=== PATIENT | male | born 1985 | race American Indian/Alaskan Native ===

== ENCOUNTER 2016-08-17 12:19 | Inpatient (IN) | payer MEDICAID ==
[2016-08-17 13:33] LABS: Hematocrit 39.5 % (35.5-45.6); Hemoglobin 12.8 gm/dl (11.8-15.2); Mean Corpuscular HGB Conc 32 % (32-34); Mean Corpuscular Hemoglobin 27 pg (28-32); Mean Corpuscular Volume 82 fl (84-94); Platelet Count 113 K/mm3 (140-440)
[2016-08-17] MEDS ORDERED: TYLENOL PO ONE (13:39)
[2016-08-17 13:47] LABS: Bacteria,Urine 1+ /HPF (Negative); Bilirubin,Urine NEG (Negative); Blood,Urine SM (Negative); Ketones,Urine NEG (Negative); Leukocyte Esterase,Urine SM (Negative); Mucus,Urine 1+ /HPF; Nitrite,Urine NEG (Negative); Protein,Urine <15 mg/dL mg/dL (Negative); Urobilinogen,Urine < 2.0 mg/dL (<2.0)
[2016-08-17 13:58] LABS: Alanine Aminotransferase 13 units/L (7-56); Albumin 3.6 g/dL (3.9-5); Albumin/Globulin Ratio 0.8 %; Alkaline Phosphatase 92 units/L (35-129); Anion Gap 14 mmol/L; BUN/Creatinine Ratio 8.88; Bilirubin,Total 0.5 mg/dL (0.1-1.2); Blood Urea Nitrogen 8 mg/dL (9-20); Calcium 8.4 mg/dL (8.4-10.2); Carbon Dioxide 24 mmol/L (22-30); Chloride 102.5 mmol/L (98-107); Glucose 97 mg/dL (75-100); Lipase 29 units/L (13-60); Potassium 3.6 mmol/L (3.6-5.0); Sodium 137 mmol/L (137-145); Total Protein 8.3 g/dL (6.3-8.2)
[2016-08-17 14:57] LABS: Basophils % (Manual) 0 % (0.0-1.8); Blastocytes % (Manual) 0 %
[2016-08-17 14:58] LABS: Anisocytosis 1+; Diff Status Complete; Platelet Estimate Appears Decreased
[2016-08-18] MEDS ORDERED: MORPHINE IV ONE (06:23)
[2016-08-18] MEDS ORDERED: NACL 0.9% 1000 ML 1,000 ML IV ONE (06:23)
--- NOTE | 2016-08-18 06:31 | Emergency Department Report ---
ED General Adult HPI - General Chief complaint: Abdominal Pain Stated complaint: CHEST PAIN/VOMITING/JAW SWELLING Time Seen by Provider: 08/18/16 06:15 Source: patient Mode of arrival: Ambulatory Limitations: No Limitations - History of Present Illness Initial comments: 31 year old male presents to the emergency department with multiple complaints. He reports over the past three weeks, he has been having tightness in his left upper chest radiating to his neck and jaw with exertion. He reports dizziness and diarrhea. There has been no fever. Patient has not passed out. Patient reports a history of HIV, but states he is not currently on any medication. He does not have a local physician. There are no other complaints. -: Gradual, week(s) (3) Location: face, neck, chest Radiation: non-radiation Severity scale (0 -10): 10 Quality: other (tightness) Consistency: intermittent Improves with: none Worsens with: other (exertion) Treatments Prior to Arrival: none - Related Data Home Medications Medication Instructions Recorded Confirmed Last Taken Emtricitabine/Tenofovir [Truvada 1 tab PO DAILY 01/21/16 01/21/16 Unknown 100 mg-150 mg Tablet] Norvir mg PO DAILY 01/21/16 Unknown Previous Rx's Medication Instructions Recorded Last Taken Type Sulfamethoxazole/Trimethoprim 1 each PO BID #28 tablet 11/25/15 Unknown Rx [Bactrim DS TAB] Doxycycline [Vibramycin CAP] 100 mg PO Q12HR #19 capsule 01/22/16 Unknown Rx Ibuprofen [Motrin] 600 mg PO Q8H PRN #30 tablet 01/22/16 Unknown Rx oxyCODONE [Roxicodone TAB] 5 mg PO Q6HR PRN #15 tablet 01/22/16 Unknown Rx Cephalexin [Keflex] 500 mg PO Q8HR #21 cap 05/15/16 Unknown Rx Allergies Allergy/AdvReac Type Severity Reaction Status Date / Time shellfish derived Allergy Swelling Verified 08/17/16 12:58 ED Review of Systems ROS: Stated complaint: CHEST PAIN/VOMITING/JAW SWELLING Other details as noted in HPI Comment: All other systems reviewed and negative Cardiovascular: chest pain, dyspnea on exertion, syncope (lightheadedness, no loss of consciousness) Gastrointestinal: diarrhea ED Past Medical Hx - Past Medical History Previous Medical History?: Yes Hx HIV: Yes Additional medical history: Anal Fistula - Surgical History Past Surgical History?: Yes Additional Surgical History: Fistula Surgery - Family History Family history: no significant - Social History Smoking Status: Current Every Day Smoker Substance Use Type: Marijuana - Medications Home Medications: Home Medications Medication Instructions Recorded Confirmed Last Taken Type Sulfamethoxazole/Trimethoprim 1 each PO BID #28 tablet 11/25/15 01/21/16 Unknown Rx [Bactrim DS TAB] Emtricitabine/Tenofovir [Truvada 1 tab PO DAILY 01/21/16 01/21/16 Unknown History 100 mg-150 mg Tablet] Norvir mg PO DAILY 01/21/16 Unknown History Doxycycline [Vibramycin CAP] 100 mg PO Q12HR #19 capsule 01/22/16 Unknown Rx Ibuprofen [Motrin] 600 mg PO Q8H PRN #30 tablet 01/22/16 Unknown Rx oxyCODONE [Roxicodone TAB] 5 mg PO Q6HR PRN #15 tablet 01/22/16 Unknown Rx Cephalexin [Keflex] 500 mg PO Q8HR #21 cap 05/15/16 Unknown Rx ED Physical Exam - General Limitations: No Limitations General appearance: alert, in no apparent distress - Head Head exam: Present: atraumatic, normocephalic - Eye Eye exam: Present: normal appearance, PERRL, EOMI - ENT ENT exam: Present: normal orophraynx, mucous membranes moist, other (palpable mass noted to the left mandible. Area is tender to touch. No fluctuance noted. No overlying erythema.) - Neck Neck exam: Present: normal inspection, full ROM. Absent: tenderness - Respiratory Respiratory exam: Present: normal lung sounds bilaterally. Absent: respiratory distress - Cardiovascular Cardiovascular Exam: Present: regular rate, normal rhythm, normal heart sounds - GI/Abdominal GI/Abdominal exam: Present: soft, normal bowel sounds. Absent: distended, tenderness - Extremities Exam Extremities exam: Present: normal inspection, full ROM. Absent: tenderness - Back Exam Back exam: Present: normal inspection, full ROM. Absent: tenderness - Neurological Exam Neurological exam: Present: alert, oriented X3. Absent: motor sensory deficit - Skin Skin exam: Present: warm, dry, intact ED Course Vital Signs 08/17/16 08/17/16 08/18/16 12:50 13:43 01:39 Temperature 98.7 F Pulse Rate 93 H 101 H Respiratory 17 18 20 Rate Blood Pressure 115/71 125/77 Blood Pressure [Left] O2 Sat by Pulse 100 98 Oximetry 08/18/16 04:56 Temperature Pulse Rate 70 Respiratory 16 Rate Blood Pressure Blood Pressure 96/57 [Left] O2 Sat by Pulse 99 Oximetry ED Medical Decision Making - Lab Data Result diagrams: 08/17/16 13:21 08/17/16 13:21 - EKG Data -: EKG Interpreted by Me EKG shows normal: sinus rhythm, axis, intervals, QRS complexes, ST-T waves Rate: normal - EKG Data When compared to previous EKG there are: no significant change Interpretation: normal EKG, unchanged when compared t (10/23/2015) - Radiology Data Radiology results: report reviewed, image reviewed interpreted by me: Chest x-ray shows no acute cardiopulmonary abnormality. CT of the facial bones with IV contrast revealed left facial cellulitis with no evidence of abscess. - Medical Decision Making Lab and imaging results reviewed and discussed with the patient. 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 Patient was seen by me for similar complaints approximately 2 months ago. Since the patient is not currently on any medication, IV Unasyn has been ordered. Patient is to be admitted by the hospitalist. - Differential Diagnosis facial abscess, atypical chest pain, HIV Critical care attestation.: If time is entered above; I have spent that time in minutes in the direct care of this critically ill patient, excluding procedure time. ED Disposition Clinical Impression: Cellulitis and abscess of face, HIV disease Disposition: OP ADMITTED IP TO THIS HOSP Is pt being admited?: Yes Condition: Stable Referrals: PRIMARY CARE, [Primary Care Provider] - 3-5 Days Time of Disposition: 08:59
--- NOTE | 2016-08-18 07:23 | XRay Report ---
AP CHEST: HISTORY: chest pain There is very poor inspiration. AP view of the chest demonstrates a normal mediastinal and cardiac contour with clear lungs and normal bony and soft tissue structures. IMPRESSION: Grossly negative expiratory AP chest. No significant change since 01/21/16.
[2016-08-18] MEDS ORDERED: NACL ONE (07:26)
--- NOTE | 2016-08-18 08:37 | Cat Scan Report ---
CT FACIAL BONES WITHOUT CONTRAST: HISTORY: Left facial abscess, swelling, pain. TECHNIQUE: Helical CT images with sagittal and coronal CT reformations. FINDINGS: There is nonspecific soft tissue edema and mild enhancement in the left facial soft tissues consistent with cellulitis. There is no defined fluid collection consistent with abscess. No evidence for adenopathy. There are scattered reactive lymph nodes in both jugular chains. The structures of the upper aerodigestive tract are within normal limits. The sinuses are clear. The imaged brain is unremarkable. The facial bones are intact. No fracture, bone lesion or bony destruction. IMPRESSION: Left facial cellulitis. No abscess is identified.
[2016-08-18] MEDS ORDERED: UNASYN/NS 3 GM/100 ML 3 GM/100 ML BAG IV ONE (08:51)
[2016-08-18] MEDS ORDERED: DILAUDID IV ONE (08:54)
--- NOTE | 2016-08-18 09:50 | Admit Criteria Form ---
Admission Criteria Documentation: CELLULITIS Clinical Indications for Admission to Inpatient Care (Place 'X' for any and all applicable criteria): Admission is indicated for ANY ONE of the following(1)(2)(3)(4)(5): [ ]I. Limb-threatening infection [X]II. High-risk comorbid condition as indicated by ANY ONE of the following: [ ]a) Uncontrolled diabetes (eg, HbA1c greater than 10% (0.1)) [ ]b) Cirrhosis [ ]c) Neutropenia [ ]d) Asplenia [X]e) Immunosuppression [ ]f) Symptomatic heart failure [ ]III. Failure of outpatient therapy as indicated by ALL of the following: [ ]a) Progression or no improvement after adequate trial (minimum of 48 hours, with longer period for stable lower extremity infection) [ ]b) Adequate antibiotic regimen as indicated by use of ANY ONE of the following: [ ]i) First-generation cephalosporin (e.g., cephalexin) [ ]ii) Antistaphylococcal penicillin (e.g., dicloxacillin) [ ]iii) Penicillin-allergic patient regimen (clindamycin, extended-spectrum fluoroquinolone, or doxycycline) [ ]iv) Resistant organism (eg, methicillin-resistant Staphylococcus aureus) regimen (6) [ ]c) Outpatient intravenous therapy regimen is not appropriate due to ANY ONE of the following. (7)(8)(9)(10): [ ]i) It was tried and was not successful (eg, progression of infection). [ ]ii) It is not available or cannot be arranged in a clinically appropriate time frame (e.g., the next day). [ ]iii) Clinical presentation (eg, acuity of infection, rapidity of progression, confirmed or suspected bacteremia) is judged to require ALL of the following: [ ]1) Immediate initiation of intravenous therapy ( eg, cannot wait for next day) [ ]2) Intensity of patient monitoring and observation (eg, vital sign measurement, checks for infection progression) that cannot be provided at other than inpatient level of care [ ]IV. Mental status changes [ ]V. Bacteremia [ ]. Hemodynamic instability [ ]VII. Suspected necrotizing soft tissue infection (e.g., gas in tissue)(11)( 12) [ ]VIII. Orbital infection (13)(14) [ ]IX. Associated surgical procedure (e.g., abscess drainage, debridement) not amenable to outpatient, emergency department, or observation care [ ]X. Cutaneous gangrene [ ]XI. High fever (temperature greater than 39.5 degrees C (103.1 degrees F) (oral)) not responsive to outpatient, emergency department, or observation care therapy [X]XIII. Inpatient admission required rather than observation care (Also use Cellulitis: Observation Care as appropriate) because of ANY ONE of the following : [ ]a) Periorbital or perineal infection that is severe or worsening [ ]b) Severe pain requiring acute inpatient management [ ]c) IV fluid to replace significant ongoing (e.g., for over 24 hours) losses (greater than 3L/m2 per day) [ ]d) Compartment syndrome monitoring (17) [ ]e) Strict or protective (eg, laminar flow) isolation [ ]f) Urgent debridement or skin grafting [ ]g) Bone or joint debridement [ ]h) Immediate inpatient surgery [X]i) Other condition, treatment or monitoring requiring inpatient admission Extended stay beyond goal length of stay may be needed for (1)(18): [ ]a) Necrotizing soft tissue infection or fasciitis [ ]b) Gram-negative infection [ ]c) Methicillin-resistant Staphylococcal aureus (MRSA) infection [ ]d) Peripheral venous insufficiency with cellulitis [ ]e) Extensive edema [ ]f) Sepsis or continued Hemodynamic instability [ ]g) Continued high fever or mental status change [ ]h) Bacteremia [ ]i) Active serious comorbid conditions ( eg, heart failure, renal insufficiency) The original [facility] content created by [facility] has been revised. The portions of the content which have been revised are identified through the use of italic text or in bold, and [facility] has neither reviewed nor approved the modified material. All other unmodified content is copyright [facility] [employer] [facility] Please see references footnoted in the original [facility] [employer] edition 2016 Admission Criteria Met: Yes
[2016-08-18] MEDS: ASPIRIN PO SCH (10:52)
[2016-08-18] MEDS: NITRO-BID 2% TP SCH (10:52)
[2016-08-18 11:03] LABS: INR 1.06 (0.87-1.13)
[2016-08-18 11:04] LABS: Partial Thromboplastin Time 30.9 Sec. (24.2-36.6)
[2016-08-18 11:12] LABS: Creatine Kinase 103 units/L (55-170)
[2016-08-18 11:14] LABS: Creatine Kinase MB < 1.0 ng/mL (0.0-4.0)
[2016-08-18] MEDS: VANCOMYCIN/NS 1 GM/250 ML 1 GM/250 ML BAG IV SCH (11:52)
[2016-08-18] MEDS: ZOSYN/NS 4.5GM/100ML 4.5 GM/100 ML VIAL IV SCH ×2 (14:28→22:43)
[2016-08-18] MEDS: MORPHINE IV PRN ×2 (14:29→22:42)
--- NOTE | 2016-08-18 19:32 | History and Physical Report ---
History of Present Illness Date of examination: 08/18/16 Date of admission: 08/18/16 09:00 Chief complaint: Chest pain - one day duration History of present illness: Patient is a 31-year-old gentleman was a history of HIV and cellulitis of the left cheek for which she's been having IV antibiotics, also Tylenol been discharged from my [facility] yesterday the [facility] complaining of right chest when left-sided, over 10 in severity. Nonexertional. Also with shortness of breath and diaphoresis. Admitted vomiting. Vomited 1-2 times a day. Also been treated for cellulitis of the left jaw with IV antibiotics. Found out about a year ago was positive HIV and has not had any treatment so far. Patient stated that his been having difficulties with the residents and therefore has not felt well enough to get himself and medical care. Past History Past Medical History: other (his HIV AIDS, cellulitis left jaw.) Past Surgical History: No surgical history Social history: smoking, alcohol abuse. denies: IV drug use Family history: CAD Medications and Allergies Allergies Allergy/AdvReac Type Severity Reaction Status Date / Time shellfish derived Allergy Swelling Verified 08/17/16 12:58 Home Medications Medication Instructions Recorded Confirmed Last Taken Type No Known Home Medications [No 08/18/16 08/18/16 Unknown History Reported Home Medications] Active Meds: Active Medications Aspirin (Aspirin) 325 mg PO QDAY [facility] Last Admin: 08/18/16 10:52 Dose: 325 mg Enoxaparin Sodium (Lovenox) 40 mg SUB-Q QDAY@2200 PRADEEP Vancomycin HCl (Vancomycin/Ns 1 Gm/250 Ml) 1 gm in 250 mls @ 166.667 mls/hr IV Q24HR [facility] Last Admin: 08/18/16 11:52 Dose: 166.667 mls/hr Piperacillin Sod/Tazobactam Sod (Zosyn/Ns 4.5gm/100ml) 4.5 gm in 100 mls @ 200 mls/hr IV Q8HR PRADEEP PRN Reason: Protocol Last Admin: 08/18/16 14:28 Dose: 200 mls/hr Morphine Sulfate (Morphine) 2 mg IV Q4H PRN PRN Reason: Pain, Moderate (4-6) Last Admin: 08/18/16 14:29 Dose: 2 mg Nitroglycerin (Nitro-Bid 2%) 1 inch TP DAILY PRADEEP PRN Reason: Protocol Last Admin: 08/18/16 10:52 Dose: 1 inch Review of systems Constitutional: Well Nouridhed and Well developed. Head: NC/ AT Eyes: Denies any visual impairments. No discharge from the eyes Nose: Denies any rhinorrhea or epistaxis Throats: Denies any post nasal drainage. Ears: Denies any hearing deficits Cardiovascular system: Has chest pain, shortness of breath, diaphoresis. Denies orthopnea, paroxysmal nocturnal dyspnea, or palpitation. Respiratory system: Denies any cough, difficulty breathing, wheezing, pleuritic chest pain, Gastrointestinal system: Denies any abdominal pain, nausea vomiting, hematemesis or melena. Neurological system: Denies any headache, slurred speech, facial droop, lateralizing weakness Genitalia system: Denies any dysuria, urinary frequency or urgency, urethral discharge Skin: Cellulitis left cheek. Hematological: Denies any cervical tenderness hemorrhages or petechia. Immunological: Denies any multiple septic spots, Lymphatic: Denies any generalized lymphadenopathy. Endocrine: Denies any polyuria, polydipsia, polyphagia. No heat or cold intolerance. Musculoskeletal system: No joint pain or swelling. Psych: No visual, tactile, auditory or hallucination Exam - Constitutional Vitals: Temp Pulse Resp BP Pulse Ox 102.9 F H 116 H 16 100/54 98 08/18/16 17:10 08/18/16 17:10 08/18/16 17:10 08/18/16 17:10 08/18/16 11:17 General appearance: Present: no acute distress, well-nourished - EENT Eyes: Present: PERRL ENT: hearing intact, clear oral mucosa - Neck Neck: Present: supple, normal ROM - Respiratory Respiratory effort: normal Respiratory: bilateral: CTA - Cardiovascular Heart Sounds: Present: S1 & S2. Absent: rub, click - Extremities Extremities: pulses symmetrical, No edema Peripheral Pulses: within normal limits - Abdominal General gastrointestinal: Present: soft, non-tender, non-distended - Integumentary Integumentary: Present: clear, warm, dry - Musculoskeletal Musculoskeletal: gait normal, strength equal bilaterally - Psychiatric Psychiatric: appropriate mood/affect, intact judgment & insight - Neurologic Neurologic: CNII-XII intact, moves all extremities Results - Labs CBC & Chem 7: 08/17/16 13:21 08/17/16 13:21 Assessment and Plan 1. Chest pain: Cardiac enzymes are normal. We'll continue to obtain the rest of cardiac enzymes. Patient commenced on oxygen nitroglycerin aspirin and morphine. Stress thallium in the morning. Carotids consult obtained. 2. Cellulitis left jaw. Patient's continuing IV vancomycin and Zosyn. ID consult be obtained. 3. HIV AIDS, we will obtain CD4 count and HIV screening. ID consult be obtained. 4. Leukopenia: Likely secondary to HIV/AIDS 5. UTI: Urinalysis shows a positive leukocyte esterase and urine nitrites. There was otherwise in the urine. Patient on Zosyn. Will obtain urine culture. 6. DVT prophylaxis with Lovenox and GI with Pepcid Spent 35 minutes during this admission process.
[2016-08-18] MEDS: LOVENOX SUB-Q SCH (22:42)
[2016-08-19] MEDS: MORPHINE IV PRN ×4 (04:01→22:13)
--- NOTE | 2016-08-19 09:35 | Progress Note ---
Assessment and Plan Assessment and plan: 1. Chest pain. Cardiac enzymes are normal. Continue on oxygen nitroglycerin aspirin and morphine. Stress thallium this morning. Cardiology consult obtained. 2. Cellulitis left jaw. Patient's continuing IV vancomycin and Zosyn. ID consult be obtained. 3. HIV AIDS, we will obtain CD4 count and HIV screening. ID consult pending 4. Leukopenia: Likely secondary to HIV/AIDS 5. UTI. Continue IV antibiotics and follow blood and urine cultures. 6. Sepsis. Patient presents criteria with leukopenia, tachycardia and cellulitis/UTI. Start sepsis pathway and trend acid levels. 7. DVT prophylaxis with Lovenox and GI with Pepcid History Interval history: No new issues overnight. Patient denies chest pain. Hospitalist Physical - Constitutional Vitals: Temp Pulse Resp BP Pulse Ox 98.3 F 76 16 109/72 98 08/19/16 08:00 08/19/16 08:00 08/19/16 08:00 08/19/16 08:00 08/19/16 08:00 General appearance: Present: no acute distress, well-nourished - EENT Eyes: Present: PERRL, EOM intact ENT: hearing intact, clear oral mucosa, dentition normal - Neck Neck: Present: supple, normal ROM - Respiratory Respiratory effort: normal Respiratory: bilateral: CTA - Cardiovascular Rhythm: regular Heart Sounds: Present: S1 & S2. Absent: gallop, rub - Extremities Extremities: no ischemia, No edema, Full ROM - Abdominal General gastrointestinal: soft, non-tender, non-distended, normal bowel sounds - Integumentary Integumentary: Present: clear, warm, dry - Neurologic Neurologic: CNII-XII intact, moves all extremities Results - Labs CBC & Chem 7: 08/17/16 13:21 08/17/16 13:21 Labs: Laboratory Last Values WBC 2.0 K/mm3 (4.5-11.0) L 08/17/16 13:21 RBC 4.80 M/mm3 (3.65-5.03) 08/17/16 13:21 Hgb 12.8 gm/dl (11.8-15.2) 08/17/16 13:21 Hct 39.5 % (35.5-45.6) 08/17/16 13:21 MCV 82 fl (84-94) L 08/17/16 13:21 MCH 27 pg (28-32) L 08/17/16 13:21 MCHC 32 % (32-34) 08/17/16 13:21 RDW 15.0 % (13.2-15.2) 08/17/16 13:21 Plt Count 113 K/mm3 (140-440) L 08/17/16 13:21 Crowley % (Auto) Tech Ed/Woodshop Teacher 08/17/16 13:21 Add Manual Diff Complete 08/17/16 13:21 Total Counted 50 08/17/16 13:21 Seg Neuts % (Manual) 54.0 % (40.0-70.0) 08/17/16 13:21 Band Neutrophils % 4.0 % 08/17/16 13:21 Lymphocytes % (Manual) 24.0 % (13.4-35.0) 08/17/16 13:21 Reactive Lymphs % (Man) 0 % 08/17/16 13:21 Monocytes % (Manual) 10.0 % (0.0-7.3) H 08/17/16 13:21 Eosinophils % (Manual) 2.0 % (0.0-4.3) 08/17/16 13:21 Basophils % (Manual) 0 % (0.0-1.8) 08/17/16 13:21 Metamyelocytes % 6.0 % 08/17/16 13:21 Myelocytes % 0 % 08/17/16 13:21 Promyelocytes % 0 % 08/17/16 13:21 Blast Cells % 0 % 08/17/16 13:21 Nucleated RBC % Not Reportable 08/17/16 13:21 Seg Neutrophils # Man 1.1 K/mm3 (1.8-7.7) L 08/17/16 13:21 Band Neutrophils # 0.1 K/mm3 08/17/16 13:21 Lymphocytes # (Manual) 0.5 K/mm3 (1.2-5.4) L 08/17/16 13:21 Abs React Lymphs (Man) 0.0 K/mm3 08/17/16 13:21 Monocytes # (Manual) 0.2 K/mm3 (0.0-0.8) 08/17/16 13:21 Eosinophils # (Manual) 0.0 K/mm3 (0.0-0.4) 08/17/16 13:21 Basophils # (Manual) 0.0 K/mm3 (0.0-0.1) 08/17/16 13:21 Metamyelocytes # 0.1 K/mm3 08/17/16 13:21 Myelocytes # 0.0 K/mm3 08/17/16 13:21 Promyelocytes # 0.0 K/mm3 08/17/16 13:21 Blast Cells # 0.0 K/mm3 08/17/16 13:21 WBC Morphology Not Reportable 08/17/16 13:21 Hypersegmented Neuts Not Reportable 08/17/16 13:21 Hyposegmented Neuts Not Reportable 08/17/16 13:21 Hypogranular Neuts Not Reportable 08/17/16 13:21 Smudge Cells Not Reportable 08/17/16 13:21 Toxic Granulation Not Reportable 08/17/16 13:21 Toxic Vacuolation Not Reportable 08/17/16 13:21 Dohle Bodies Not Reportable 08/17/16 13:21 Pelger-Huet Anomaly Not Reportable 08/17/16 13:21 Monika Rods Not Reportable 08/17/16 13:21 Platelet Estimate Appears decreased 08/17/16 13:21 Clumped Platelets Not Reportable 08/17/16 13:21 Plt Clumps, EDTA Not Reportable 08/17/16 13:21 Large Platelets Not Reportable 08/17/16 13:21 Giant Platelets Not Reportable 08/17/16 13:21 Platelet Satelliting Not Reportable 08/17/16 13:21 Plt Morphology Comment Not Reportable 08/17/16 13:21 RBC Morphology Not Reportable 08/17/16 13:21 Dimorphic RBCs Not Reportable 08/17/16 13:21 Polychromasia Not Reportable 08/17/16 13:21 Hypochromasia Not Reportable 08/17/16 13:21 Poikilocytosis Not Reportable 08/17/16 13:21 Anisocytosis 1+ 08/17/16 13:21 Microcytosis Not Reportable 08/17/16 13:21 Macrocytosis Not Reportable 08/17/16 13:21 Spherocytes Not Reportable 08/17/16 13:21 Pappenheimer Bodies Not Reportable 08/17/16 13:21 Sickle Cells Not Reportable 08/17/16 13:21 Target Cells Not Reportable 08/17/16 13:21 Tear Drop Cells Not Reportable 08/17/16 13:21 Ovalocytes Not Reportable 08/17/16 13:21 Helmet Cells Not Reportable 08/17/16 13:21 [place] Bodies Not Reportable 08/17/16 13:21 [place] Rings Not Reportable 08/17/16 13:21 [place] Cells Not Reportable 08/17/16 13:21 Bite Cells Not Reportable 08/17/16 13:21 Crenated Cell Not Reportable 08/17/16 13:21 Elliptocytes Not Reportable 08/17/16 13:21 Acanthocytes (Spur) Not Reportable 08/17/16 13:21 Rouleaux Not Reportable 08/17/16 13:21 Hemoglobin C Crystals Not Reportable 08/17/16 13:21 Schistocytes Not Reportable 08/17/16 13:21 Malaria parasites Not Reportable 08/17/16 13:21 Alvaro Bodies Not Reportable 08/17/16 13:21 Hem Pathologist Commnt No 08/17/16 13:21 PT 13.7 Sec. (12.2-14.9) 08/18/16 10:29 INR 1.06 (0.87-1.13) 08/18/16 10:29 APTT 30.9 Sec. (24.2-36.6) 08/18/16 10:29 Sodium 137 mmol/L (137-145) 08/17/16 13:21 Potassium 3.6 mmol/L (3.6-5.0) 08/17/16 13:21 Chloride 102.5 mmol/L (98-107) 08/17/16 13:21 Carbon Dioxide 24 mmol/L (22-30) 08/17/16 13:21 Anion Gap 14 mmol/L 08/17/16 13:21 BUN 8 mg/dL (9-20) L 08/17/16 13:21 Creatinine 0.9 mg/dL (0.8-1.5) 08/17/16 13:21 Estimated GFR > 60 ml/min 08/17/16 13:21 BUN/Creatinine Ratio 8.88 % 08/17/16 13:21 Glucose 97 mg/dL (75-100) 08/17/16 13:21 Calcium 8.4 mg/dL (8.4-10.2) 08/17/16 13:21 Total Bilirubin 0.5 mg/dL (0.1-1.2) 08/17/16 13:21 AST 17 units/L (5-40) 08/17/16 13:21 ALT 13 units/L (7-56) 08/17/16 13:21 Alkaline Phosphatase 92 units/L (35-129) 08/17/16 13:21 Total Creatine Kinase 103 units/L (55-170) 08/18/16 10:29 CK-MB (CK-2) < 1.0 ng/mL (0.0-4.0) 08/18/16 10:29 CK-MB (CK-2) Rel Index 0.9 (0-4) 08/18/16 10:29 Troponin T < 0.010 ng/mL (0.00-0.029) 08/18/16 10:29 Total Protein 8.3 g/dL (6.3-8.2) H 08/17/16 13:21 Albumin 3.6 g/dL (3.9-5) L 08/17/16 13:21 Albumin/Globulin Ratio 0.8 % 08/17/16 13:21 Lipase 29 units/L (13-60) 08/17/16 13:21 Urine Color Yellow (Yellow) 08/17/16 Unknown Urine Turbidity Clear (Clear) 08/17/16 Unknown Urine pH 5.0 (5.0-7.0) 08/17/16 Unknown Ur Specific [place] 1.023 (1.003-1.030) 08/17/16 Unknown Urine Protein <15 mg/dl mg/dL (Negative) 08/17/16 Unknown Urine Glucose (UA) Neg mg/dL (Negative) 08/17/16 Unknown Urine Ketones Neg mg/dL (Negative) 08/17/16 Unknown Urine Blood Sm (Negative) 08/17/16 Unknown Urine Nitrite Neg (Negative) 08/17/16 Unknown Urine Bilirubin Neg (Negative) 08/17/16 Unknown Urine Urobilinogen < 2.0 mg/dL (<2.0) 08/17/16 Unknown Ur Leukocyte Esterase Sm (Negative) 08/17/16 Unknown Urine WBC (Auto) 15.0 /HPF (0.0-6.0) H 08/17/16 Unknown Urine RBC (Auto) 4.0 /HPF (0.0-6.0) 08/17/16 Unknown U Epithel Cells (Auto) 1.0 /HPF (0-13.0) 08/17/16 Unknown Urine Bacteria (Auto) 1+ /HPF (Negative) 08/17/16 Unknown Urine Mucus 1+ /HPF 08/17/16 Unknown
[2016-08-19] MEDS: ASPIRIN PO SCH (09:44)
[2016-08-19] MEDS: ZOSYN/NS 4.5GM/100ML 4.5 GM/100 ML VIAL IV SCH ×3 (09:48→22:11)
[2016-08-19] MEDS: NITRO-BID 2% TP SCH (09:48)
[2016-08-19] MEDS: VANCOMYCIN/NS 1 GM/250 ML 1 GM/250 ML BAG IV SCH ×3 (11:27→22:12)
--- NOTE | 2016-08-19 19:54 | Consultation ---
History of Present Illness - Reason for Consult Consult date: 08/19/16 FACIAL CELLULITIS Requesting physician: JAC ROSE - History of Present Illness Patient is a 31-year-old gentleman was a history of HIV and cellulitis of the left cheek for which she's been having IV antibiotics, also Tylenol been discharged from my [facility] yesterday the [facility] complaining of right chest when left-sided, over 10 in severity. Nonexertional. Also with shortness of breath and diaphoresis. Admitted vomiting. Vomited 1-2 times a day. Also been treated for cellulitis of the left jaw with IV antibiotics. Found out about a year ago was positive HIV and has not had any treatment so far. Patient stated that his been having difficulties with the residents and therefore has not felt well enough to get himself and medical care. Past History Past Medical History: other (his HIV AIDS, cellulitis left jaw.) PHYSICAL EXAM Left facial cellulitis with mild swelling. LABS - Reviewed. See lab section. ASSESSMENT 1. LEFT FACIAL CELLULITIS 2. HIV/AIDS 3. LEUKOPENIA RECOMMENDATION 1. Switch to oral levaquin and clindamycin in am 2. cd4 count, hiv rna qty 3. cbc / bmp in am Past History Past Medical History: other (his HIV AIDS, cellulitis left jaw.) Past Surgical History: No surgical history Social history: smoking, alcohol abuse. denies: IV drug use Family history: CAD Medications and Allergies Allergies Allergy/AdvReac Type Severity Reaction Status Date / Time shellfish derived Allergy Swelling Verified 08/17/16 12:58 Home Medications Medication Instructions Recorded Confirmed Last Taken Type No Known Home Medications [No 08/18/16 08/18/16 Unknown History Reported Home Medications] Active Meds: Active Medications Aspirin (Aspirin) 325 mg PO QDAY [facility] Last Admin: 08/19/16 09:44 Dose: 325 mg Enoxaparin Sodium (Lovenox) 40 mg SUB-Q QDAY@2200 [facility] Last Admin: 08/18/16 22:42 Dose: 40 mg Piperacillin Sod/Tazobactam Sod (Zosyn/Ns 4.5gm/100ml) 4.5 gm in 100 mls @ 200 mls/hr IV Q8HR PRADEEP PRN Reason: Protocol Last Admin: 08/19/16 13:56 Dose: 200 mls/hr Vancomycin HCl (Vancomycin/Ns 1 Gm/250 Ml) 1 gm in 250 mls @ 166.667 mls/hr IV Q8HR PRADEEP Last Admin: 08/19/16 13:57 Dose: 166.667 mls/hr Morphine Sulfate (Morphine) 2 mg IV Q4H PRN PRN Reason: Pain, Moderate (4-6) Last Admin: 08/19/16 15:27 Dose: 2 mg Nitroglycerin (Nitro-Bid 2%) 1 inch TP DAILY PRADEEP PRN Reason: Protocol Last Admin: 08/19/16 09:48 Dose: Not Given Physical Examination - Constitutional Vitals: Vital Signs Temp Pulse Resp BP Pulse Ox 98.3 F 69 18 96/65 98 08/19/16 15:42 08/19/16 15:42 08/19/16 15:42 08/19/16 15:42 08/19/16 10:00 Temperature -Last 24 Hours Temperature 98.3 F Temperature 98.3 F Temperature 99.6 F Results - Labs CBC & Chem 7: 08/17/16 13:21 08/17/16 13:21 Labs: Abnormal lab results 08/19/16 Range/Units 09:45 Lactic Acid 0.6 L (0.7-2.0) mmol/L
[2016-08-19] MEDS: LOVENOX SUB-Q SCH (22:13)
[2016-08-20 05:30] LABS: Hematocrit 36.9 % (35.5-45.6); Mean Corpuscular HGB Conc 32 % (32-34); Mean Corpuscular Hemoglobin 27 pg (28-32); Mean Corpuscular Volume 82 fl (84-94); Platelet Count 105 K/mm3 (140-440); Red Blood Count 4.52 M/mm3 (3.65-5.03); Red Cell Distribution Width 14.8 % (13.2-15.2)
[2016-08-20 05:34] LABS: White Blood Count 2.2 K/mm3 (4.5-11.0)
[2016-08-20] MEDS: ZOSYN/NS 4.5GM/100ML 4.5 GM/100 ML VIAL IV SCH ×2 (06:00→16:59)
[2016-08-20] MEDS: MORPHINE IV PRN ×2 (06:09→17:22)
[2016-08-20 06:28] LABS: Anisocytosis 1+; Basophils % (Manual) 0 % (0.0-1.8); Blastocytes % (Manual) 0 %; Diff Status Complete; Platelet Estimate Consistent w Auto
[2016-08-20] MEDS: VANCOMYCIN/NS 1 GM/250 ML 1 GM/250 ML BAG IV SCH ×2 (06:44→17:37)
[2016-08-20 07:51] LABS: Anion Gap 14 mmol/L; BUN/Creatinine Ratio 13.75; Blood Urea Nitrogen 11 mg/dL (9-20); Calcium 8.2 mg/dL (8.4-10.2); Carbon Dioxide 25 mmol/L (22-30); Chloride 104.7 mmol/L (98-107); Glucose 86 mg/dL (75-100); Potassium 3.8 mmol/L (3.6-5.0); Sodium 140 mmol/L (137-145)
--- NOTE | 2016-08-20 11:04 | Progress Note ---
Assessment and Plan Assessment and plan: 1. Chest pain. Cardiac enzymes are normal. Continue on oxygen nitroglycerin aspirin and morphine. Stress thallium this morning. 2. Cellulitis left jaw. Patient's continuing IV vancomycin and Zosyn. ID consulted. Wound care consultation. 3. HIV/AIDS. we will obtain CD4 count and HIV screening. ID following. 4. Leukopenia. Likely secondary to HIV/AIDS 5. UTI. Continue IV antibiotics and follow blood and urine cultures. 6. Sepsis. Patient presents criteria with leukopenia, tachycardia and cellulitis/UTI. Cont. sepsis pathway and trend acid levels. 7. DVT prophylaxis with Lovenox and GI with Pepcid History Interval history: No new issues overnight. Patient denies chest pain. Hospitalist Physical - Constitutional Vitals: Temp Pulse Resp BP Pulse Ox 98.2 F 72 16 108/62 97 08/20/16 08:00 08/20/16 08:00 08/20/16 08:00 08/20/16 08:00 08/20/16 08:00 General appearance: Present: no acute distress, well-nourished, other (Left facial swelling, no erythema) - EENT Eyes: Present: PERRL, EOM intact ENT: hearing intact, clear oral mucosa, dentition normal - Neck Neck: Present: supple, normal ROM - Respiratory Respiratory effort: normal Respiratory: bilateral: CTA - Cardiovascular Rhythm: regular Heart Sounds: Present: S1 & S2. Absent: gallop, rub - Extremities Extremities: no ischemia, No edema, Full ROM - Abdominal General gastrointestinal: soft, non-tender, non-distended, normal bowel sounds - Integumentary Integumentary: Present: clear, warm, dry - Neurologic Neurologic: CNII-XII intact, moves all extremities Results - Labs CBC & Chem 7: 08/20/16 04:41 08/20/16 07:14 Labs: Laboratory Last Values WBC 2.2 K/mm3 (4.5-11.0) L 08/20/16 04:41 RBC 4.52 M/mm3 (3.65-5.03) 08/20/16 04:41 Hgb 12.0 gm/dl (11.8-15.2) 08/20/16 04:41 Hct 36.9 % (35.5-45.6) 08/20/16 04:41 MCV 82 fl (84-94) L 08/20/16 04:41 MCH 27 pg (28-32) L 08/20/16 04:41 MCHC 32 % (32-34) 08/20/16 04:41 RDW 14.8 % (13.2-15.2) 08/20/16 04:41 Plt Count 105 K/mm3 (140-440) L 08/20/16 04:41 [place] % (Auto) Surface Miner 08/20/16 04:41 Add Manual Diff Complete 08/20/16 04:41 Total Counted 100 08/20/16 04:41 Seg Neuts % (Manual) 45.0 % (40.0-70.0) 08/20/16 04:41 Band Neutrophils % 6.0 % 08/20/16 04:41 Lymphocytes % (Manual) 20.0 % (13.4-35.0) 08/20/16 04:41 Reactive Lymphs % (Man) 0 % 08/20/16 04:41 Monocytes % (Manual) 19.0 % (0.0-7.3) H 08/20/16 04:41 Eosinophils % (Manual) 10.0 % (0.0-4.3) H 08/20/16 04:41 Basophils % (Manual) 0 % (0.0-1.8) 08/20/16 04:41 Metamyelocytes % 0 % 08/20/16 04:41 Myelocytes % 0 % 08/20/16 04:41 Promyelocytes % 0 % 08/20/16 04:41 Blast Cells % 0 % 08/20/16 04:41 Nucleated RBC % Not Reportable 08/20/16 04:41 Seg Neutrophils # Man 1.0 K/mm3 (1.8-7.7) L 08/20/16 04:41 Band Neutrophils # 0.1 K/mm3 08/20/16 04:41 Lymphocytes # (Manual) 0.4 K/mm3 (1.2-5.4) L 08/20/16 04:41 Abs React Lymphs (Man) 0.0 K/mm3 08/20/16 04:41 Monocytes # (Manual) 0.4 K/mm3 (0.0-0.8) 08/20/16 04:41 Eosinophils # (Manual) 0.2 K/mm3 (0.0-0.4) 08/20/16 04:41 Basophils # (Manual) 0.0 K/mm3 (0.0-0.1) 08/20/16 04:41 Metamyelocytes # 0.0 K/mm3 08/20/16 04:41 Myelocytes # 0.0 K/mm3 08/20/16 04:41 Promyelocytes # 0.0 K/mm3 08/20/16 04:41 Blast Cells # 0.0 K/mm3 08/20/16 04:41 WBC Morphology Not Reportable 08/20/16 04:41 Hypersegmented Neuts Not Reportable 08/20/16 04:41 Hyposegmented Neuts Not Reportable 08/20/16 04:41 Hypogranular Neuts Not Reportable 08/20/16 04:41 Smudge Cells Not Reportable 08/20/16 04:41 Toxic Granulation Not Reportable 08/20/16 04:41 Toxic Vacuolation Not Reportable 08/20/16 04:41 Dohle Bodies Not Reportable 08/20/16 04:41 Pelger-Huet Anomaly Not Reportable 08/20/16 04:41 Monika Rods Not Reportable 08/20/16 04:41 Platelet Estimate Consistent w auto 08/20/16 04:41 Clumped Platelets Not Reportable 08/20/16 04:41 Plt Clumps, EDTA Not Reportable 08/20/16 04:41 Large Platelets Not Reportable 08/20/16 04:41 Giant Platelets Not Reportable 08/20/16 04:41 Platelet Satelliting Not Reportable 08/20/16 04:41 Plt Morphology Comment Not Reportable 08/20/16 04:41 RBC Morphology Not Reportable 08/20/16 04:41 Dimorphic RBCs Not Reportable 08/20/16 04:41 Polychromasia Not Reportable 08/20/16 04:41 Hypochromasia Not Reportable 08/20/16 04:41 Poikilocytosis Not Reportable 08/20/16 04:41 Anisocytosis 1+ 08/20/16 04:41 Microcytosis Not Reportable 08/20/16 04:41 Macrocytosis Not Reportable 08/20/16 04:41 Spherocytes Not Reportable 08/20/16 04:41 Pappenheimer Bodies Not Reportable 08/20/16 04:41 Sickle Cells Not Reportable 08/20/16 04:41 Target Cells Not Reportable 08/20/16 04:41 Tear Drop Cells Not Reportable 08/20/16 04:41 Ovalocytes Not Reportable 08/20/16 04:41 Helmet Cells Not Reportable 08/20/16 04:41 Berkowitz-Luyando Bodies Not Reportable 08/20/16 04:41 [place] Rings Not Reportable 08/20/16 04:41 [place] Cells Not Reportable 08/20/16 04:41 Bite Cells Not Reportable 08/20/16 04:41 Crenated Cell Not Reportable 08/20/16 04:41 Elliptocytes Not Reportable 08/20/16 04:41 Acanthocytes (Spur) Not Reportable 08/20/16 04:41 Rouleaux Not Reportable 08/20/16 04:41 Hemoglobin C Crystals Not Reportable 08/20/16 04:41 Schistocytes Not Reportable 08/20/16 04:41 Malaria parasites Not Reportable 08/20/16 04:41 Alvaro Bodies Not Reportable 08/20/16 04:41 Hem Pathologist Commnt No 08/20/16 04:41 PT 13.7 Sec. (12.2-14.9) 08/18/16 10:29 INR 1.06 (0.87-1.13) 08/18/16 10:29 APTT 30.9 Sec. (24.2-36.6) 08/18/16 10:29 Sodium 140 mmol/L (137-145) 08/20/16 07:14 Potassium 3.8 mmol/L (3.6-5.0) 08/20/16 07:14 Chloride 104.7 mmol/L (98-107) 08/20/16 07:14 Carbon Dioxide 25 mmol/L (22-30) 08/20/16 07:14 Anion Gap 14 mmol/L 08/20/16 07:14 BUN 11 mg/dL (9-20) 08/20/16 07:14 Creatinine 0.8 mg/dL (0.8-1.5) 08/20/16 07:14 Estimated GFR > 60 ml/min 08/20/16 07:14 BUN/Creatinine Ratio 13.75 % 08/20/16 07:14 Glucose 86 mg/dL (75-100) 08/20/16 07:14 Lactic Acid 1.0 mmol/L (0.7-2.0) 08/19/16 14:08 Calcium 8.2 mg/dL (8.4-10.2) L 08/20/16 07:14 Total Bilirubin 0.5 mg/dL (0.1-1.2) 08/17/16 13:21 AST 17 units/L (5-40) 08/17/16 13:21 ALT 13 units/L (7-56) 08/17/16 13:21 Alkaline Phosphatase 92 units/L (35-129) 08/17/16 13:21 Total Creatine Kinase 103 units/L (55-170) 08/18/16 10:29 CK-MB (CK-2) < 1.0 ng/mL (0.0-4.0) 08/18/16 10:29 CK-MB (CK-2) Rel Index 0.9 (0-4) 08/18/16 10:29 Troponin T < 0.010 ng/mL (0.00-0.029) 08/18/16 10:29 Total Protein 8.3 g/dL (6.3-8.2) H 08/17/16 13:21 Albumin 3.6 g/dL (3.9-5) L 08/17/16 13:21 Albumin/Globulin Ratio 0.8 % 08/17/16 13:21 Lipase 29 units/L (13-60) 08/17/16 13:21 Urine Color Yellow (Yellow) 08/17/16 Unknown Urine Turbidity Clear (Clear) 08/17/16 Unknown Urine pH 5.0 (5.0-7.0) 08/17/16 Unknown Ur Specific [place] 1.023 (1.003-1.030) 08/17/16 Unknown Urine Protein <15 mg/dl mg/dL (Negative) 08/17/16 Unknown Urine Glucose (UA) Neg mg/dL (Negative) 08/17/16 Unknown Urine Ketones Neg mg/dL (Negative) 08/17/16 Unknown Urine Blood Sm (Negative) 08/17/16 Unknown Urine Nitrite Neg (Negative) 08/17/16 Unknown Urine Bilirubin Neg (Negative) 08/17/16 Unknown Urine Urobilinogen < 2.0 mg/dL (<2.0) 08/17/16 Unknown Ur Leukocyte Esterase Sm (Negative) 08/17/16 Unknown Urine WBC (Auto) 15.0 /HPF (0.0-6.0) H 08/17/16 Unknown Urine RBC (Auto) 4.0 /HPF (0.0-6.0) 08/17/16 Unknown U Epithel Cells (Auto) 1.0 /HPF (0-13.0) 08/17/16 Unknown Urine Bacteria (Auto) 1+ /HPF (Negative) 08/17/16 Unknown Urine Mucus 1+ /HPF 08/17/16 Unknown
[2016-08-20] MEDS ORDERED: LEXISCAN IV ONE ×2 (12:21→12:25)
[2016-08-20] MEDS: ASPIRIN PO SCH (16:58)
[2016-08-20] MEDS: NITRO-BID 2% TP SCH (16:58)
[2016-08-20] MEDS ORDERED: HABITROL TD ONE (17:53)
--- NOTE | 2016-08-20 20:14 | Progress Note ---
Subjective Date of service: 08/20/16 Principal diagnosis: cellulitis left face Interval history: Patient seen. No complaints. He wants to be discharged. PHYSICAL EXAM VS - Afebrile. Left facial cellulitis with mild swelling. LABS - Reviewed. See lab section. ASSESSMENT 1. LEFT FACIAL CELLULITIS 2. HIV/AIDS 3. LEUKOPENIA RECOMMENDATION 1. Switch to oral levaquin and clindamycin. d/c iv vancomycin and zosyn 2. d/c planning on above oral antibiotics for 2weeks. Objective - Constitutional Vitals: Vital Signs Temp Pulse Resp BP Pulse Ox 98.5 F 78 20 112/62 97 08/20/16 17:00 08/20/16 17:00 08/20/16 17:00 08/20/16 17:00 08/20/16 08:00 Temperature -Last 24 Hours Temperature 98.5 F Temperature 98.2 F Temperature 98.3 F - Labs CBC & Chem 7: 08/20/16 04:41 08/20/16 07:14 Labs: Abnormal lab results 08/20/16 08/20/16 Range/Units 04:41 07:14 WBC 2.2 L (4.5-11.0) K/mm3 MCV 82 L (84-94) fl MCH 27 L (28-32) pg Plt Count 105 L (140-440) K/mm3 Monocytes % (Manual) 19.0 H (0.0-7.3) % Eosinophils % (Manual) 10.0 H (0.0-4.3) % Seg Neutrophils # Man 1.0 L (1.8-7.7) K/mm3 Lymphocytes # (Manual) 0.4 L (1.2-5.4) K/mm3 Calcium 8.2 L (8.4-10.2) mg/dL
--- NOTE | 2016-08-20 21:23 | Treadmill Report ---
PROCEDURE: Single-isotope dual study myocardial perfusion scan. REFERRING PHYSICIAN: Willian Seymour MD DESCRIPTION OF PROCEDURE: The patient received 10 mCi of technetium 99m Myoview intravenously under resting conditions. Resting myocardial perfusion scan was done. Subsequently, the patient underwent Lexiscan stress test as per the protocol. During Lexiscan stress, the patient received 28 mCi of technetium 99m Myoview intravenously. After 30-60 minutes, post stress images were done. Computerized reconstruction images were performed for analysis. The post-stress images revealed mild transient ischemic dilatation of the left ventricle with TID ratio of 1.16. A small mild distal inferior wall perfusion was seen in the stress images. Gated study revealed moderately dilated left ventricle with low normal left ventricular ejection fraction of 51%. The resting images reveal reversibility of the perfusion defect seen on the stress images. CONCLUSION: 1. Mild transient ischemic dilatation of the left ventricle with TID ratio of 1.16. 2. Moderately dilated left ventricle. 3. Small mild reversible distal inferior wall perfusion defect. 4. Gated study did not reveal any wall motion abnormality. 5. Low normal left ventricular ejection fraction of 51%. JOB# [id number] [facility]
[2016-08-20] MEDS: DOMEBORO PACKET TP SCH (23:09)
[2016-08-20] MEDS: LOVENOX SUB-Q SCH (23:10)
[2016-08-21] MEDS: MORPHINE IV PRN ×2 (00:01→08:42)
[2016-08-21 05:44] LABS: Hematocrit 36.1 % (35.5-45.6); Hemoglobin 11.8 gm/dl (11.8-15.2); Mean Corpuscular HGB Conc 33 % (32-34); Mean Corpuscular Hemoglobin 27 pg (28-32); Mean Corpuscular Volume 82 fl (84-94); Platelet Count 122 K/mm3 (140-440); Red Blood Count 4.39 M/mm3 (3.65-5.03); Red Cell Distribution Width 14.7 % (13.2-15.2)
[2016-08-21 06:29] LABS: Anion Gap 16 mmol/L; BUN/Creatinine Ratio 11.25; Blood Urea Nitrogen 9 mg/dL (9-20); Carbon Dioxide 24 mmol/L (22-30); Chloride 105.5 mmol/L (98-107); Glucose 108 mg/dL (75-100); Potassium 3.5 mmol/L (3.6-5.0); Sodium 142 mmol/L (137-145)
[2016-08-21 07:49] LABS: Anisocytosis 1+; Basophils % (Manual) 0 % (0.0-1.8); Blastocytes % (Manual) 0 %; Elliptocytes Few; Hypochromasia 1+; Ovalocytes Few
[2016-08-21 07:50] LABS: Diff Status Complete; Platelet Estimate Consistent w Auto
[2016-08-21] MEDS: CLEOCIN PO SCH ×2 (08:43→14:38)
--- NOTE | 2016-08-21 09:11 | Discharge Summary ---
Providers - Providers Date of Admission: 08/18/16 09:00 Date of discharge: 08/21/16 Attending physician: CAROLYN PRADO 08/18/16 09:48 Consult to Physician [CONS] Routine Consulting Provider: VELVET NAZARIO Reason For Exam: HIV Notified:: PLEASE CALL MD IN AM 08/20/16 11:01 Consult to Wound/ET Nurse [CONS] Routine Reason For Exam: wound eval Primary care physician: [employer]IVER Hospitalization Reason for admission: sepsis, Cellulitis face Condition: Stable Hospital course: 31-year-old male with history of HIV and facial cellulitis presented to the emergency department with complaints of chest pain. Patient also has some associated nausea and vomiting 2. Patient underwent exercise stress thallium which revealed mild transient ischemic dilatation of the left ventricle and moderately dilated left ventricle. Small mild reversible distal inferior wall perfusion defect and low normal left ventricular ejection fraction of 51%. Patient was also seen by ID for the facial cellulitis. CT scan revealed no evidence of abscess. Patient had a small local that was evaluated by wound care nurse and was found to have only mild inflammation no odor. The wound was cleansed and most likely will resolve in the next few days. ID recommended antibiotics for 2 weeks of Levaquin and clindamycin. Patient will be discharged with aspirin daily and is to follow up with director of collections and archives and outpatient for any further intervention. Patient currently is having no further chest pain. Patient is also follow with ID as an outpatient. Dedicated discharge time 32 minutes. Disposition: DISCHARGED TO HOME OR SELFCARE Time spent for discharge: 32 - Discharge Diagnoses (1) Cellulitis and abscess of face Status: Acute (2) HIV disease Status: Chronic Core Measure Documentation - Palliative Care Palliative Care/ Comfort Measures: Not Applicable - Core Measures Any of the following diagnoses?: none Exam - Constitutional Vitals: Temp Pulse Resp BP Pulse Ox 98.2 F 80 18 111/58 98 08/21/16 00:00 08/21/16 00:00 08/21/16 00:00 08/21/16 00:00 08/21/16 00:00 General appearance: Present: no acute distress, well-nourished - EENT Eyes: Present: PERRL ENT: hearing intact, clear oral mucosa - Neck Neck: Present: supple, normal ROM - Respiratory Respiratory effort: normal Respiratory: bilateral: CTA - Cardiovascular Heart Sounds: Present: S1 & S2. Absent: rub, click - Extremities Extremities: pulses symmetrical, No edema Peripheral Pulses: within normal limits - Abdominal General gastrointestinal: Present: soft, non-tender, non-distended, normal bowel sounds Male genitourinary: Present: normal - Integumentary Integumentary: Present: clear, warm, dry - Musculoskeletal Musculoskeletal: gait normal, strength equal bilaterally - Psychiatric Psychiatric: appropriate mood/affect, intact judgment & insight - Neurologic Neurologic: CNII-XII intact, moves all extremities Plan Activity: no restrictions Weight Bearing Status: Full Weight Bearing Diet: regular Follow up with: PRIMARY CARE, [Primary Care Provider] - 3-5 Days JOHAN BURNETT MD [Staff Physician] - 7 Days VELVET NAZARIO MD [Staff Physician] - 7 Days Forms: AMA Form Prescriptions: Aspirin [Aspirin TAB] 325 mg PO QDAY #30 tablet Clindamycin [Clindamycin CAP] 600 mg PO TID #42 capsule Levofloxacin [Levaquin TAB] 750 mg PO Q24HR #14 tablet
[2016-08-21] MEDS ORDERED: LEVAQUIN PO SCH (10:00)
[2016-08-21] MEDS: DOMEBORO PACKET TP SCH (10:00)
[2016-08-21] MEDS: NITRO-BID 2% TP SCH (10:46)
[2016-08-21] MEDS: ASPIRIN PO SCH (10:46)
[2016-08-21] MEDS ORDERED: FLUARIX QUAD 2016-2017(36 MOS+) IM ONE (14:00)
[2016-08-21] MEDS ORDERED: PNEUMOVAX 23 IM ONE (14:00)
[2016-08-21 15:49] VITALS: BP 114/58
== END 2016-08-21 16:30 | disposition home or self-care (01) | DRG 975 ==
LOC: ED 12:19 → EEVIPCON 08-18 09:00 → 4A 08-18 09:00 → UNDODISIN 08-18 15:34 → 3A 08-18 16:35
PROVIDERS: ADMIT Family Medicine; ATTEND Hospitalist
DX: B20 Human immunodeficiency virus [HIV] disease (principal); L03.211 Cellulitis of face; A41.9 Sepsis, unspecified organism; N39.0 Urinary tract infection, site not specified; L02.01 Cutaneous abscess of face; R07.9 Chest pain, unspecified; Z82.49 Family history of ischemic heart disease and other diseases of the circulatory system; Z91.013 Allergy to seafood
CPT/HCPCS: 36415; 70487; 71010; 78452; 80048; 80053; 80202; 81001; 82140; 82550; 82553; 83690; 84484; 85007; 85025; 85610; 85730; 87086; 90686; 90732; 93005; 93010; 93017; 96361; 96365; 96375; 99406; A9502; J0295; J1170; J1650; J2270; J2543; J2785; J3370; J7030; Q9967